=== PATIENT | male | born 1955 | race Caucasian/White ===

== ENCOUNTER 2023-09-04 06:55 | Day surgery (SDC) | payer MEDICARE, BC ==
[2023-09-03 15:24] LABS: ALBUMIN 3.7 G/DL (3.4-5.0); ANION GAP 8 (8-16); BLOOD UREA NITROGEN 31 MG/DL (7-18); BUN/CREATININE RATIO 16.1 (10.0-20.0); CALCIUM 9.3 MG/DL (8.5-10.1); CHLORIDE 101 MMOL/L (99-107); CREATININE 1.93 MG/DL (0.60-1.10); GLUCOSE 96 MG/DL (70-104); POTASSIUM 4.5 MMOL/L (3.5-5.1); SODIUM 136 MMOL/L (135-145); TOTAL CARBON DIOXIDE 27.2 MMOL/L (24-32); eGFR 35 ML/MIN
[2023-09-03 15:27] LABS: BASOPHILS # (AUTO) 0.1 X10'3 (0-0.2); BASOPHILS % (AUTO) 0.8 % (0-1); EOSINOPHILS # (AUTO) 0.1 X10'3 (0-0.9); EOSINOPHILS % (AUTO) 1.3 % (0-6); HEMATOCRIT 43.4 % (42.0-52.0); HEMOGLOBIN 14.5 g/dl (14.0-17.9); INR 1.9 INR; LYMPHOCYTES # (AUTO) 1.6 X10'3 (1.1-4.8); LYMPHOCYTES % (AUTO) 23.8 % (21-51); MEAN CORPUSCULAR HGB CONC 33.3 g/dL (33.0-36.5); MEAN CORPUSCULAR VOLUME 96.2 FL (78-98); MEAN PLATELET VOLUME 7.3 FL (7.4-10.4); MONOCYTES # (AUTO) 0.6 X10'3 (0-0.9); MONOCYTES % (AUTO) 8.4 % (2-12); NEUTROPHILS # (AUTO) 4.5 X10'3 (1.8-7.7); NEUTROPHILS % (AUTO) 65.7 % (42-75); PLATELET COUNT 264 X10'3 (140-440); PROTHROMBIN TIME 19.6 SECONDS (9.0-12.0); RED BLOOD COUNT 4.51 X10'6 (4.70-6.10); RED CELL DISTRIBUTION WIDTH 14.5 % (11.5-14.5); WHITE BLOOD COUNT 6.9 X10'3 (4.5-11.0)
[~2023-09-04] VITALS: Ht 182.9 cm; Wt 87.1 kg
[2023-09-04] VITALS (8 sets, daily range): BP systolic 109–178; BP diastolic 60–78; PULSE 43–62; RESP 12–17; TEMP 98.4; O2SAT 97–100
[2023-09-04] MEDS ORDERED: LORazepam 0.5 MG tablet PO ONE (07:10)
[2023-09-04] MEDS ORDERED: diphenhydrAMINE 25mg capsule PO ONE (07:10)
[2023-09-04] MEDS ORDERED: amiodarone 150mg/dext, iso-os 100 ML IV ONE (07:10)
[2023-09-04] MEDS ORDERED: NEBI5TAB12 PO (08:10)
[2023-09-04] MEDS ORDERED: ASPI-1265 PO (08:10)
[2023-09-04] MEDS ORDERED: AMI200T PO (08:10)
[2023-09-04] MEDS ORDERED: DABI150C PO (08:10)
[2023-09-04] MEDS ORDERED: LOVA40TA2 PO (08:10)
[2023-09-04] MEDS ORDERED: KRIL500C PO (08:10)
[2023-09-04] MEDS: MIDAZolam 1mg/ml 10ml vial IV ONE (10:30)
[2023-09-04] MEDS: morphine 10mg/ml inj. IV ONE (10:30)
[2023-09-04] MEDS: atropine 0.1mg/ml 10ml syringe IV ONE (10:30)
== END 2023-09-04 11:25 | disposition home or self-care (01) ==
LOC: SSTAY O 06:55
PROVIDERS: ATTEND Internal Medicine Cardiovascular Disease
DX: I48.91 Unspecified atrial fibrillation (principal); I48.92 Unspecified atrial flutter; I10 Essential (primary) hypertension; E78.5 Hyperlipidemia, unspecified; Z79.82 Long term (current) use of aspirin; Z79.899 Other long term (current) drug therapy; Z98.890 Other specified postprocedural states; Z88.8 Allergy status to other drugs, medicaments and biological substances; Z82.49 Family history of ischemic heart disease and other diseases of the circulatory system; Z80.9 Family history of malignant neoplasm, unspecified
CPT/HCPCS: 36415; 80048; 85025; 85610; 92960; 93005; J0461; J2250; J2270; Z7610; J2274

== ENCOUNTER 2024-03-25 13:52 | Outpatient (CLI) | payer MEDICARE, BC ==
[~2024-03-25] VITALS: Ht 180.3 cm; Wt 79.4 kg
[~2024-03-25 13:52] MED LIST: AMI200T PO; ASPI-1265 PO; DABI150C PO; KRIL500C PO; LOVA40TA2 PO; NEBI5TAB13 PO
[2024-03-25 14:10] LABS: TOTAL HEMOGLOBIN 11.8 G/dl (13.5-17.5)
[2024-03-25] MEDS: albuterol 2.5 MG/3 ML nebule NEB ONE (14:55)
[2024-03-25 14:56] VITALS: PULSE 70; RESP 16; O2SAT 98
[2024-03-25 15:09] VITALS: PULSE 78; RESP 16
== END 2024-03-25 23:59 | disposition home or self-care (01) ==
LOC: RT 13:52
PROVIDERS: ATTEND Internal Medicine Cardiovascular Disease
DX: R06.02 Shortness of breath (principal); Z79.899 Other long term (current) drug therapy
CPT/HCPCS: 85018; 94060; 94727; 94729; 94760